=== PATIENT | male | born 1990 | race Caucasian/White ===

== ENCOUNTER 2020-06-04 21:13 | Emergency (ER) | payer OTHER ==
[2020-06-04] MEDS ORDERED: VOLTAREN **OUT50 MG PO (22:09)
[2020-06-04] MEDS ORDERED: NORCO 5-325 TA1 EACH PO (22:09)
[2020-06-04] MEDS ORDERED: ROBAXIN750 MG PO (22:09)
[2020-06-04] MEDS ORDERED: MEDROL 4MG DOSEP4 MG PO (22:09)
== END 2020-06-04 22:40 | disposition home or self-care (01) ==
LOC: FER 21:13
DX: S39.012A Strain of muscle, fascia and tendon of lower back, initial encounter (principal); M54.16 Radiculopathy, lumbar region; X50.9XXA Other and unspecified overexertion or strenuous movements or postures, initial encounter; Y92.89 Other specified places as the place of occurrence of the external cause
CPT/HCPCS: 99283; J7512